=== PATIENT | male | born 2005 | race Asian ===

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

== ENCOUNTER 2024-03-30 11:12 | Emergency (ER) | payer MEDICAID ==
[~2024-03-30] VITALS: Ht 182.9 cm; Wt 68.0 kg
[~2024-03-30 11:12] MED LIST: IBUP-1955 PO
[2024-03-30] MEDS ORDERED: NAPR-1164 PO (11:45)
[2024-03-30 12:06] VITALS: BP 139/83; TEMP 98.1; O2SAT 100
== END 2024-03-30 12:07 | disposition home or self-care (01) ==
LOC: ER 11:18
DX: M26.629 Arthralgia of temporomandibular joint, unspecified side (principal)

== ENCOUNTER 2025-01-28 10:10 | Emergency (ER) | payer MEDICAID, OTHER ==
[~2025-01-28] VITALS: Ht 185.4 cm; Wt 68.0 kg
[~2025-01-28 10:10] MED LIST changes: +NAPR-1164 PO
[2025-01-28 10:19] VITALS: BP 126/80; TEMP 98.3
[2025-01-28] MEDS ORDERED: IBUPROFEN 600 MG TABLET ONE (11:04)
[2025-01-28] MEDS: IBUPROFEN 600 MG TABLET PO ONE (11:07)
[2025-01-28 13:07] VITALS: O2SAT 99
== END 2025-01-28 13:08 | disposition home or self-care (01) ==
LOC: ER 10:15
DX: M79.672 Pain in left foot (principal); F17.200 Nicotine dependence, unspecified, uncomplicated; Z79.899 Other long term (current) drug therapy
CPT/HCPCS: 73630-TC